=== PATIENT | female | born 1965 | race Hispanic/Latino ===

== ENCOUNTER 2019-01-31 10:13 | Observation (INO) | payer OTHER ==
[~2019-01-31] VITALS: Ht 165.1 cm; Wt 68.0 kg
--- OUTSIDE RECORDS SUMMARY | 2019-01-31 10:16 | XMS REPORT | Continuity of Care Document ---
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 (Same as: Augmentin 875) Inactive 04/01/2014 [facility] atorvastatin 10 MG Oral Tablet [Lipitor] 10 mg=1 tab, PO, Bedtime, # 30 tab, 0 Refill(s) Active 03/31/2014 [facility] Amoxicillin 875 MG / Clavulanate 125 MG Oral Tablet [Augmentin 875-mg] 1 tab, PO, Q12H, # 20 tab, 0 Refill(s) Active 03/31/2014 [facility] Aspirin 325 MG Enteric Coated Tablet 325 mg=1 tab, PO, Daily, # 100 tab, 0 Refill(s) Active 03/31/2014 [facility] Lipitor 10 mg, 1 tab, Route: PO, Drug form: TAB, Bedtime, Dosing Weight 74.176, kg, Start date: 03/30/14 21:00:00, Duration: 30 day, Stop date: 04/28/14 21:00:00Notes: (Same As: Lipitor) No Longer Active 03/31/2014 [facility] pantoprazole 40 mg, 1 tab, Route: PO, Drug form: ECTAB, Before Dinner, Dosing Weight 72.727, kg, Start date: 03/30/14 16:30:00, Duration: 30 day, Stop date: 04/28/14 16:30:00Notes: Tablet should not be chewed or crushed. (Same as: Protonix) No Longer Active 03/30/2014 [facility] Enoxaparin 40 mg, 0.4 mL, Route: SUB-Q, Drug form: INJ, [id number], Dosing Weight 74.176, kg, Start date: 03/30/14 9:00:00, Duration: 30 day, Stop date: 04/28/14 9:00:00Notes: (Same as: Lovenox) No Longer Active 03/30/2014 [facility] Saline Flush 0.9% 5 ml, Route: IVP, Drug Form: INJ, Dosing Weight 74.176, kg, Q12H, Start date: 03/30/14 9:00:00, Duration: 30 day, Stop date: 04/28/14 21:00:00Notes: (Same as: BD Posiflush) No Longer Active 03/30/2014 [facility] Aspirin 325 MG Enteric Coated Tablet 325 mg, 1 tab, Route: PO, Drug form: ECTAB, Daily, Dosing Weight 74.176, kg, Start date: 03/30/14 9:00:00, Duration: 30 day, Stop date: 04/28/14 9:00:00Notes: (Do Not Crush) Do not crush or chew. No Longer Active 03/30/2014 [facility] Claritin 10 mg, 1 tab, Route: PO, Drug form: TAB, Daily, Dosing Weight 74.176, kg, PRN See Nurse's Notes, Start date: 03/30/14 8:43:00, Duration: 30 day, Stop date: 04/29/14 8:42:00, allergyNotes: 1 hr before meals (Same as: Claritin) No Longer Active 03/30/2014 [facility] Saline Flush 0.9% 5 ml, Route: IVP, Drug Form: INJ, Dosing Weight 74.176, kg, PRN, PRN Line Flush, Start date: 03/30/14 6:15:00, Duration: 30 day, Stop date: 04/29/14 6:14:00Notes: (Same as: BD Posiflush) No Longer Active 03/30/2014 [facility] Acetaminophen 650 mg, 2 tab, Route: PO, Drug form: TAB, Q4H, Dosing Weight 74.176, kg, PRN Pain 1-3/Temp > 99.5 F, Start date: 03/30/14 6:15:00, Duration: 30 day, Stop date: 04/29/14 6:14:00Notes: Do not exceed 4 gm/day. (Same as: Tylenol) No Longer Active 03/30/2014 [facility] Claritin 10 mg=1 tab, PO, Daily, Itching / rash / allergy symptoms, # 14 tab, 0 Refill(s) Active 03/30/2014 [facility] Aspirin / Calcium Carbonate 81 mg, 1 tab, Route: PO, Drug form: ECTAB, ONCE, Dosing Weight 72.727, kg, Priority: STAT, Start date: 03/30/14 3:55:00, Stop date: 03/30/14 3:55:00Notes: Do not crush or chew. (Same As: Ecotrin) Inactive 03/30/2014 [facility] Saline Flush 0.9% 5 mL, Route: IVP, Drug Form: INJ, Dosing Weight 72.727, kg, PRN, PRN Line Flush, Start date: 03/30/14 2:39:00, Duration: 30 day, Stop date: 04/29/14 2:38:00Notes: (Same as: BD Posiflush) No Longer Active 03/30/2014 [facility] Allergies, Adverse Reactions, Alerts Substance Category Reaction Severity Reaction type Status Date Reported Comments Source contrast media (iodine-based) Assertion Drug allergy Active [facility] Immunizations Immunization Date Given Site Status Last Updated Comments Source Results Order Name Results Value Reference Range Date Interpretation Comments Source CHEM PANEL Globulin 3.6 g/dL 2.0 - 4.0 03/31/2014 [facility] CHEM PANEL A/G Ratio 0.9 0.7 - 1.6 03/31/2014 [facility] CHEM PANEL AGAP 11.7 meq/L 10.0 - 20.0 03/31/2014 [facility] CHEM PANEL B/C Ratio 16 6 - 25 03/31/2014 [facility] CHEM PANEL eGFR 87 mL/min/1.73m2 03/31/2014 1Result Comment: The eGFR is calculated using the CKD-EPI formula. In most young, healthy individuals the eGFR will be >90 mL/min/1.73m2. The eGFR declines with age. An eGFR of 60-89 may be normal in some populations, particularly the elderly, for whom the CKD-EPI formula has not been extensively validated. Use of the eGFR is not recommended in the following populations: Individuals with unstable creatinine concentrations, including patients and those with serious co-morbid conditions. Patients with extremes in muscle mass or diet. The data above are obtained from the National Kidney Disease Education Program (NKDEP) which additionally recommends that when the eGFR is used in patients with extremes of body mass index for purposes of drug dosing, the eGFR should be multiplied by the estimated BMI. [facility] CHEM PANEL Total Protein 7.0 g/dL 6.4 - 8.4 03/31/2014 [facility] CHEM PANEL Calcium Lvl 8.8 mg/dL 8.5 - 10.5 03/31/2014 [facility] CHEM PANEL ALT 38 unit/L 0 - 65 03/31/2014 [facility] CHEM PANEL Albumin Lvl 3.4 g/dL 3.5 - 5.0 03/31/2014 [facility] CHEM PANEL Glucose Lvl 97 mg/dL 70 - 99 03/31/2014 4Interpretive Data: Adult reference range values reflect the clinical guidelines of the [place] [employer]. [facility] CHEM PANEL BUN 13 mg/dL 7 - 22 03/31/2014 [facility] CHEM PANEL Creatinine Lvl 0.8 mg/dL 0.5 - 1.4 03/31/2014 [facility] CHEM PANEL Sodium Lvl 140 meq/L 135 - 145 03/31/2014 [facility] CHEM PANEL Potassium Lvl 3.7 meq/L 3.5 - 5.1 03/31/2014 [facility] CHEM PANEL Alk Phos 63 unit/L 39 - 136 03/31/2014 [facility] CHEM PANEL AST 20 unit/L 0 - 37 03/31/2014 [facility] CHEM PANEL Bili Total 0.4 mg/dL 0.2 - 1.3 03/31/2014 [facility] CHEM PANEL CO2 26 meq/L 24 - 32 03/31/2014 [facility] CHEM PANEL Chloride Lvl 106 meq/L 95 - 109 03/31/2014 [facility] HEMATOLOGY Basophils 0.3 % 0.0 - 1.0 03/31/2014 [facility] HEMATOLOGY Eosinophils 1.9 % 0.0 - 4.0 03/31/2014 [facility] HEMATOLOGY Monocytes 6.3 % 2.0 - 12.0 03/31/2014 [facility] HEMATOLOGY Lymphocytes 33.1 % 20.0 - 40.0 03/31/2014 [facility] Segs 58.4 % 45.0 - 75.0 03/31/2014 [facility] Eosinophils # 0.1 K/CMM 0.0 - 0.5 03/31/2014 [facility] Monocytes # 0.4 K/CMM 0.0 - 0.8 03/31/2014 [facility] Lymphocytes # 2.0 K/CMM 1.0 - 5.5 03/31/2014 [facility] Segs-Bands # 3.6 K/CMM 1.5 - 8.1 03/31/2014 [facility] Basophils # 0.0 K/CMM 0.0 - 0.2 03/31/2014 [facility] MCHC 34.1 g/dL 32.0 - 36.0 03/31/2014 [facility] MCH 30.5 pg 27.0 - 31.0 03/31/2014 [facility] Hgb 13.1 g/dL 12.0 - 16.0 03/31/2014 [facility] RBC 4.31 M/CMM 4.20 - 5.40 03/31/2014 [facility] WBC 6.2 K/CMM 3.7 - 10.4 03/31/2014 [facility] MCV 89.3 fL 81.0 - 99.0 03/31/2014 [facility] Hct 38.5 % 36.0 - 48.0 03/31/2014 [facility] MPV 7.8 fL 7.4 - 10.4 03/31/2014 [facility] Platelet 332 K/CMM 133 - 450 03/31/2014 [facility] RDW 14.3 % 11.5 - 14.5 03/31/2014 [facility] Carotid artery Doppler bilat US Carotid artery Doppler bilat US PROCEDURE: Carotid artery Doppler US REASON FOR EXAM: r/o cva CLINICAL INFORMATION Transient cerebral ischem COMPARISON: None. TECHNIQUE: Duran-scale, color Doppler and spectral Doppler of the carotid arteries was performed. Any reported ICA stenoses indirectly reference the distal internal carotid diameter as the denominator for the stenosis measurement, utilizing consensus panel criteria. FINDINGS: RIGHT: There is no plaque formation. ICA PSV 112 cm/sec CCA PSV 128 cm/sec ICA/CCA ratio 0.89 Vertebral flow is antegrade. External carotid artery is patent. LEFT: There is no plaque formation. ICA PSV 105 cm/sec CCA PSV 128 cm/sec ICA/CCA ratio 0.82 Vertebral flow is antegrade. External carotid artery is patent. IMPRESSION: 1. RIGHT: ICA stenosis less than 50% by velocity criteria. 1. LEFT: ICA stenosis less than 50% by velocity criteria. Consensus panel Doppler US criteria for diagnosis of ICA stenosis: Stenosis (%) ICA PSV (cm/sec) ICA/CCA ratio <50 <125 <2.0 50-69 125-230 2.0-4.0 >70 but less than >230 >4.0 near occlusion Near occlusion High, low, or Variable undetectable SL: 13 03/30/2014 - - Read by: César Elkins MD Dictated Date/time: 03/30/14 13:57 Electronically Signed by: César Elkins MD 03/30/14 14:01 FINAL REPORT [facility] CHEM PANEL Creatinine Lvl 0.8 mg/dL 0.5 - 1.4 03/30/2014 [facility] CHEM PANEL eGFR 87 mL/min/1.73m2 03/30/2014 2Result Comment: The eGFR is calculated using the CKD-EPI formula. In most young, healthy individuals the eGFR will be >90 mL/min/1.73m2. The eGFR declines with age. An eGFR of 60-89 may be normal in some populations, particularly the elderly, for whom the CKD-EPI formula has not been extensively validated. Use of the eGFR is not recommended in the following populations: Individuals with unstable creatinine concentrations, including patients and those with serious co-morbid conditions. Patients with extremes in muscle mass or diet. The data above are obtained from the National Kidney Disease Education Program (NKDEP) which additionally recommends that when the eGFR is used in patients with extremes of body mass index for purposes of drug dosing, the eGFR should be multiplied by the estimated BMI. [facility] HEMATOLOGY Platelet 322 K/CMM 133 - 450 03/30/2014 [facility] LIPIDS LDL (Calculated) 151 mg/dL <=99 mg/dL 03/30/2014 [facility] LIPIDS VLDL 33 03/30/2014 [facility] LIPIDS CHD Risk 6.94 3.90 - 5.80 03/30/2014 [facility] LIPIDS HDL 31 mg/dL >=61 mg/dL 03/30/2014 [facility] LIPIDS Chol 215 mg/dL <=199 mg/dL 03/30/2014 [facility] LIPIDS Trig 167 mg/dL <=149 mg/dL 03/30/2014 [facility] Brain wo contrast MRI Brain wo contrast MRI PROCEDURE: Brain wo contrast MRI REASON FOR EXAM: r/o cva PT COMPLAINS OF WEAKNESS AND LEFT SIDE NUMBNESS AND TINGLING X 1 DAY CLINICAL INFORMATION Weakness COMPARISON: 03/30/2014 FINDINGS: There is no acute or subacute infarction. There are no focal areas of FLAIR signal abnormality. The temporal lobes are symmetric in size and signal characteristics. The extra-axial space, duran-white differentiation, ventricles and cisterns are normal. There is no hemorrhage, mass or midline shift. The sella and foramen magnum regions are normal. There is mild ethmoid sinus mucosal thickening. IMPRESSION: 1. No evidence for hemorrhage, mass lesion or acute infarct. 2. Mild ethmoid sinus mucosal thickening. SL: 13 03/30/2014 - - Read by: César Elkins MD Dictated Date/time: 03/30/14 11:49 Electronically Signed by: César Elkins MD 03/30/14 11:53 FINAL REPORT [facility] URINE AND STOOL UA Turbidity Clear (03/30/14 3:30 AM) Clear 03/30/2014 [facility] URINE AND STOOL UA Protein Negative mg/dL Negative mg/dL 03/30/2014 [facility] URINE AND STOOL UA Spec Grav 1.006 <=1.030 03/30/2014 [facility] URINE AND STOOL UA pH 6.0 5.0 - 8.0 03/30/2014 [facility] URINE AND STOOL UA Glucose Negative mg/dL Negative mg/dL 03/30/2014 [facility] URINE AND STOOL UA Ketones Negative mg/dL Negative mg/dL 03/30/2014 [facility] URINE AND STOOL UA Bili Negative *NA* (03/30/14 3:30 AM) Negative 03/30/2014 [facility] URINE AND STOOL UA Blood Large *ABN* (03/30/14 3:30 AM) Negative 03/30/2014 [facility] URINE AND STOOL UA Nitrite Negative (03/30/14 3:30 AM) Negative 03/30/2014 [facility] URINE AND STOOL UA Bacteria Moderate /HPF None Seen /HPF 03/30/2014 [facility] URINE AND STOOL UA Sq Epi Occasional /LPF Few /LPF 03/30/2014 [facility] URINE AND STOOL UA WBC 5 /HPF 0 - 5 03/30/2014 [facility] URINE AND STOOL UA RBC 17 /HPF 0 - 2 03/30/2014 [facility] URINE AND STOOL UA Leuk Est Trace *ABN* (03/30/14 3:30 AM) Negative 03/30/2014 [facility] URINE AND STOOL UA Color Ltyellow 03/30/2014 [facility] URINE AND STOOL UA Urobilinogen <=1.0 mg/dL 0.1 - 1.0 03/30/2014 [facility] URINE CHEM U Preg Negative (03/30/14 3:30 AM) Negative 03/30/2014 [facility] CARDIAC ENZYMES CK MB Index 0.9 0.0 - 2.5 03/30/2014 [facility] CARDIAC ENZYMES Troponin-I null 0.00 - 0.40 03/30/2014 [facility] CARDIAC ENZYMES CK MB 1.0 ng/mL 0.5 - 3.6 03/30/2014 [facility] CARDIAC ENZYMES Total CK 108 unit/L 12 - 191 03/30/2014 [facility] CHEM PANEL eGFR 87 mL/min/1.73m2 03/30/2014 3Result Comment: The eGFR is calculated using the CKD-EPI formula. In most young, healthy individuals the eGFR will be >90 mL/min/1.73m2. The eGFR declines with age. An eGFR of 60-89 may be normal in some populations, particularly the elderly, for whom the CKD-EPI formula has not been extensively validated. Use of the eGFR is not recommended in the following populations: Individuals with unstable creatinine concentrations, including patients and those with serious co-morbid conditions. Patients with extremes in muscle mass or diet. The data above are obtained from the National Kidney Disease Education Program (NKDEP) which additionally recommends that when the eGFR is used in patients with extremes of body mass index for purposes of drug dosing, the eGFR should be multiplied by the estimated BMI. [facility] CHEM PANEL AGAP 11.4 meq/L 10.0 - 20.0 03/30/2014 [facility] CHEM PANEL Calcium Lvl 9.2 mg/dL 8.5 - 10.5 03/30/2014 [facility] CHEM PANEL BUN 10 mg/dL 7 - 22 03/30/2014 [facility] CHEM PANEL Glucose Lvl 99 mg/dL 70 - 99 03/30/2014 5Interpretive Data: Adult reference range values reflect the clinical guidelines of the [place] [employer]. [facility] CHEM PANEL Creatinine Lvl 0.8 mg/dL 0.5 - 1.4 03/30/2014 [facility] CHEM PANEL Potassium Lvl 3.4 meq/L 3.5 - 5.1 03/30/2014 [facility] CHEM PANEL Sodium Lvl 139 meq/L 135 - 145 03/30/2014 [facility] CHEM PANEL CO2 25 meq/L 24 - 32 03/30/2014 [facility] CHEM PANEL Chloride Lvl 106 meq/L 95 - 109 03/30/2014 [facility] HEMATOLOGY Eosinophils # 0.2 K/CMM 0.0 - 0.5 03/30/2014 [facility] HEMATOLOGY Basophils 0.6 % 0.0 - 1.0 03/30/2014 [facility] HEMATOLOGY Segs-Bands # 3.7 K/CMM 1.5 - 8.1 03/30/2014 [facility] HEMATOLOGY Lymphocytes # 3.6 K/CMM 1.0 - 5.5 03/30/2014 [facility] HEMATOLOGY Monocytes # 0.5 K/CMM 0.0 - 0.8 03/30/2014 [facility] HEMATOLOGY Monocytes 6.8 % 2.0 - 12.0 03/30/2014 [facility] HEMATOLOGY Eosinophils 2.0 % 0.0 - 4.0 03/30/2014 [facility] Lymphocytes 44.6 % 20.0 - 40.0 03/30/2014 [facility] HEMATOLOGY Segs 46.0 % 45.0 - 75.0 03/30/2014 [facility] HEMATOLOGY Basophils # 0.1 K/CMM 0.0 - 0.2 03/30/2014 [facility] HEMATOLOGY PT 13.1 s 12.0 - 14.7 03/30/2014 [facility] HEMATOLOGY INR 1.00 0.85 - 1.17 03/30/2014 6Interpretive Data: RECOMMENDED RANGES FOR PROTIME INR: 2.0-3.0 for most medical and surgical thromboembolic states. 2.5-3.5 for artificial heart valves and recurrent embolism. INR SHOULD BE USED ONLY FOR PATIENTS ON STABLE ANTICOAGULANT THERAPY. [facility] PTT 33.7 s 22.9 - 35.8 03/30/2014 7Interpretive Data: Heparin Therapeutic Range: 57 - 92 Seconds [facility] HEMATOLOGY MPV 7.8 fL 7.4 - 10.4 03/30/2014 [facility] HEMATOLOGY Platelet 366 K/CMM 133 - 450 03/30/2014 [facility] MCH 30.4 pg 27.0 - 31.0 03/30/2014 [facility] HEMATOLOGY MCHC 34.3 g/dL 32.0 - 36.0 03/30/2014 [facility] HEMATOLOGY RDW 14.3 % 11.5 - 14.5 03/30/2014 [facility] HEMATOLOGY Hct 38.9 % 36.0 - 48.0 03/30/2014 [facility] HEMATOLOGY MCV 88.7 fL 81.0 - 99.0 03/30/2014 [facility] HEMATOLOGY WBC 8.1 K/CMM 3.7 - 10.4 03/30/2014 [facility] HEMATOLOGY RBC 4.39 M/CMM 4.20 - 5.40 03/30/2014 [facility] Hgb 13.3 g/dL 12.0 - 16.0 03/30/2014 [facility] Vital Signs Vital Sign Value Date Comments Source Diastolic (mm Hg) 67 03/31/2014 [facility] Systolic (mm Hg) 103 03/31/2014 [facility] Heart Rate 66 03/31/2014 [facility] Respitory Rate 16 03/31/2014 [facility] Temperature Oral (F) 97.7 F 03/31/2014 [facility] Respitory Rate 16 03/31/2014 [facility] Systolic (mm Hg) 100 03/31/2014 [facility] Diastolic (mm Hg) 65 03/31/2014 [facility] Temperature Oral (F) 98.0 F 03/31/2014 [facility] Heart Rate 68 03/31/2014 [facility] Systolic (mm Hg) 101 03/31/2014 [facility] Diastolic (mm Hg) 62 03/31/2014 [facility] Temperature Oral (F) 97.6 F 03/31/2014 [facility] Respitory Rate 14 03/31/2014 [facility] Heart Rate 62 03/31/2014 [facility] Weight 74.176 03/30/2014 [facility] BMI Calculated 28.07 03/30/2014 [facility] Height 162.56 cm 03/30/2014 [facility] Weight 72.727 03/30/2014 [facility] Encounters Location Location Details Encounter Type Encounter Number Reason For Visit Attending Provider ADM Date DC Date Status Source [facility] Inpatient [id number] Solis Juarez 03/30/2014 03/31/2014 [facility] Procedure Code Date Perfomer Comments Source Kidney operation [id number] [facility]
--- OUTSIDE RECORDS SUMMARY | 2019-01-31 10:16 | XMS REPORT | Summary of Care ---
Author Organization Unknown Address Unknown Phone Unavailable Encounter [facility] Salma(ARELIS) [id number] Date(s): 03/30/14 - 03/31/14 [facility] [id number] Discharge Disposition: Home Physician Attending: Solis Juarez MD Physician Admitting: Solis Juarez MD Reason for Visit CVA Vital Signs 1 2 3 Most recent to oldest [Reference Range]: 162.56 cm (03/30/14 5:50 AM) Height 97.7 DegF (03/31/14 12:00 PM) 98.0 DegF (03/31/14 8:00 AM) 97.6 DegF (03/31/14 4:15 AM) Temperature Oral [96.4-99.1 DegF] 103 mmHg (03/31/14 12:00 PM) 100 mmHg (03/31/14 8:00 AM) 101 mmHg (03/31/14 4:15 AM) Systolic Blood Pressure [90-140 mmHg] 67 mmHg (03/31/14 12:00 PM) 65 mmHg (03/31/14 8:00 AM) 62 mmHg (03/31/14 4:15 AM) Diastolic Blood Pressure [60-90 mmHg] 16 BRMIN (03/31/14 12:00 PM) 16 BRMIN (03/31/14 8:00 AM) 14 BRMIN (03/31/14 4:15 AM) Respiratory Rate [14-20 BRMIN] 66 bpm (03/31/14 12:00 PM) 68 bpm (03/31/14 8:00 AM) 62 bpm (03/31/14 4:15 AM) Peripheral Pulse Rate [60-100 bpm] 74.176 kg (03/30/14 5:50 AM) 72.727 kg (03/30/14 2:24 AM) Weight 28.07 m2 (03/30/14 5:50 AM) Body Mass Index Problem List Condition Effective Dates Status Health Status Informant Kidney Resolved neoplasm(Confirmed) Allergies, Adverse Reactions, Alerts Substance Reaction Severity Status contrast media Active (iodine-based) Medications acetaminophen 650 mg, 2 tab, Route: PO, Drug form: TAB, Q4H, Dosing Weight 74.176, kg, PRN Diane n 1-3/Temp > 99.5 F, Start date: 03/30/14 6:15:00, Duration: 30 day, Stop date: 04/29/14 6:14:00 Notes: Do not exceed 4 gm/day. (Same as: Tylenol) Start Date: 03/30/14 Stop Date: 03/31/14 Status: Discontinued aspirin 81 mg, 1 tab, Route: PO, Drug form: ECTAB, ONCE, Dosing Weight 72.727, kg, Prior ity: STAT, Start date: 03/30/14 3:55:00, Stop date: 03/30/14 3:55:00 Notes: Do not crush or chew.(Same As: Ecotrin) Start Date: 03/30/14 Stop Date: 03/30/14 Status: Completed aspirin 325 mg tablet, enteric coated 325 mg=1 tab, PO, Daily, # 100 tab, 0 Refill(s) Start Date: 03/31/14 Status: Ordered aspirin 325 mg tablet, enteric coated 325 mg, 1 tab, Route: PO, Drug form: ECTAB, Daily, Dosing Weight 74.176, kg, Sta rt date: 03/30/14 9:00:00, Duration: 30 day, Stop date: 04/28/14 9:00:00 Notes: (Do Not Crush) Do not crush or chew. Start Date: 03/30/14 Stop Date: 03/31/14 Status: Discontinued Augmentin 875 mg oral tablet 1 tab, PO, Q12H, # 20 tab, 0 Refill(s) Start Date: 03/31/14 Status: Ordered Augmentin 875 mg oral tablet 1 tab, Route: PO, Drug Form: TAB, Dosing Weight 74.176, kg, Q12H, Start date: 21:00:00, Duration: 30 day, Stop date: 04/30/14 9:00:00 Notes: With food.(Same as: Augmentin 875) Start Date: 03/31/14 Stop Date: 03/31/14 Status: Canceled Claritin 10 mg, 1 tab, Route: PO, Drug form: TAB, Daily, Dosing Weight 74.176, kg, PRN Se e Nurse's Notes, Start date: 03/30/14 8:43:00, Duration: 30 day, Stop date: 04/02 8:42:00, allergy Notes: 1 hr before meals (Same as: Claritin) Start Date: 03/30/14 Stop Date: 03/31/14 Status: Discontinued Claritin 10 mg=1 tab, PO, Daily, Itching / rash / allergy symptoms, # 14 tab, 0 Refill(s) Start Date: 03/30/14 Stop Date: 04/13/14 Status: Ordered enoxaparin 40 mg, 0.4 mL, Route: SUB-Q, Drug form: INJ, [id number], Dosing Weight 74.176, kg, Start date: 03/30/14 9:00:00, Duration: 30 day, Stop date: 04/28/14 9:00:00 Notes: (Same as: Lovenox) Start Date: 03/30/14 Stop Date: 03/31/14 Status: Discontinued Lipitor 10 mg, 1 tab, Route: PO, Drug form: TAB, Bedtime, Dosing Weight 74.176, kg, Star t date: 03/30/14 21:00:00, Duration: 30 day, Stop date: 04/28/14 21:00:00 Notes: (Same As: Lipitor) Start Date: 03/30/14 Stop Date: 03/31/14 Status: Discontinued Lipitor 10 mg oral tablet 10 mg=1 tab, PO, Bedtime, # 30 tab, 0 Refill(s) Start Date: 03/31/14 Status: Ordered pantoprazole 40 mg, 1 tab, Route: PO, Drug form: ECTAB, Before Dinner, Dosing Weight 72.727, kg, Start date: 03/30/14 16:30:00, Duration: 30 day, Stop date: 04/28/14 16:30:0 0 Notes: Tablet should not be chewed or crushed.(Same as: Protonix) Start Date: 03/30/14 Stop Date: 03/31/14 Status: Discontinued Saline Flush 0.9% 5 mL, Route: IVP, Drug Form: INJ, Dosing Weight 72.727, kg, PRN, PRN Line Flush, Start date: 03/30/14 2:39:00, Duration: 30 day, Stop date: 04/29/14 2:38:00 Notes: (Same as: BD Posiflush) Start Date: 03/30/14 Stop Date: 03/31/14 Status: Discontinued Saline Flush 0.9% 5 ml, Route: IVP, Drug Form: INJ, Dosing Weight 74.176, kg, Q12H, Start date: 9:00:00, Duration: 30 day, Stop date: 04/28/14 21:00:00 Notes: (Same as: BD Posiflush) Start Date: 03/30/14 Stop Date: 03/31/14 Status: Discontinued Saline Flush 0.9% 5 ml, Route: IVP, Drug Form: INJ, Dosing Weight 74.176, kg, PRN, PRN Line Flush, Start date: 03/30/14 6:15:00, Duration: 30 day, Stop date: 04/29/14 6:14:00 Notes: (Same as: BD Posiflush) Start Date: 03/30/14 Stop Date: 03/31/14 Status: Discontinued Results ELECTROLYTES 1 2 3 Most recent to oldest [Reference Range]: 140 mEq/L (03/31/14 5:52 AM) 139 mEq/L (03/30/14 2:40 AM) Sodium Lvl [135-145 mEq/L] 3.7 mEq/L (03/31/14 5:52 AM) 3.4 mEq/L *LOW* (03/30/14 2:40 AM) Potassium Lvl [3.5-5.1 mEq/L] 106 mEq/L (03/31/14 5:52 AM) 106 mEq/L (03/30/14 2:40 AM) Chloride Lvl [95-109 mEq/L] 26 mEq/L (03/31/14 5:52 AM) 25 mEq/L (03/30/14 2:40 AM) CO2 [24-32 mEq/L] 11.7 mEq/L (03/31/14 5:52 AM) 11.4 mEq/L (03/30/14 2:40 AM) AGAP [10.0-20.0 mEq/L] CHEM PANEL 1 2 3 Most recent to oldest [Reference Range]: 0.8 mg/dL (03/31/14 5:52 AM) 0.8 mg/dL (03/30/14 6:34 AM) 0.8 mg/dL (03/30/14 2:40 AM) Creatinine Lvl [0.5-1.4 mg/dL] 87 mL/min/1.73m2 1 *NA* (03/31/14 5:52 AM) 87 mL/min/1.73m2 2 *NA* (03/30/14 6:34 AM) 87 mL/min/1.73m2 3 *NA* (03/30/14 2:40 AM) eGFR 13 mg/dL (03/31/14 5:52 AM) 10 mg/dL (03/30/14 2:40 AM) BUN [7-22 mg/dL] 16 (03/31/14 5:52 AM) B/C Ratio [6-25] 97 mg/dL 4 (03/31/14 5:52 AM) 99 mg/dL 5 (03/30/14 2:40 AM) Glucose Lvl [70-99 mg/dL] 7.0 g/dL (03/31/14 5:52 AM) Total Protein [6.4-8.4 g/dL] 3.4 g/dL *LOW* (03/31/14 5:52 AM) Albumin Lvl [3.5-5.0 g/dL] 3.6 g/dL (03/31/14 5:52 AM) Globulin [2.0-4.0 g/dL] 0.9 (03/31/14 5:52 AM) A/G Ratio [0.7-1.6] 8.8 mg/dL (03/31/14 5:52 AM) 9.2 mg/dL (03/30/14 2:40 AM) Calcium Lvl [8.5-10.5 mg/dL] 38 unit/L (03/31/14 5:52 AM) ALT [0-65 unit/L] 20 unit/L (03/31/14 5:52 AM) AST [0-37 unit/L] 63 unit/L (03/31/14 5:52 AM) Alk Phos [39-136 unit/L] 0.4 mg/dL (03/31/14 5:52 AM) Bili Total [0.2-1.3 mg/dL] 1Result Comment: The eGFR is calculated using [...] from the National Kid[employer] Disease Education Program ( NKDEP) which additionally recommends that when the eGFR is used in patients with extremes of body mass index for purposes of drug dosing, the eGFR should be mul tiplied by the estimated BMI. 2Result Comment: The eGFR is calculated using [...] from the National Kidney Disease Education Program ( NKDEP) which additionally recommends that when the eGFR is used in patients with extremes of body mass index for purposes of drug dosing, the eGFR should be mul tiplied by the estimated BMI. 3Result Comment: The eGFR is calculated using [...] from the National Kidney Disease Education Program ( NKDEP) which additionally recommends that when the eGFR is used in patients with extremes of body mass index for purposes of drug dosing, the eGFR should be mul tiplied by the estimated BMI. 4Interpretive Data: Adult reference range values reflect the clinical guidelines of the [place] [employer]. 5Interpretive Data: Adult reference range values reflect the clinical guidelines of the [place] [employer]. CARDIAC ENZYMES 1 2 3 Most recent to oldest [Reference Range]: 108 unit/L (03/30/14 2:40 AM) Total CK [12-191 unit/L] 1.0 ng/mL (03/30/14 2:40 AM) CK MB [0.5-3.6 ng/mL] 0.9 (03/30/14 2:40 AM) CK MB Index [0.0-2.5] <0.02 ng/mL (03/30/14 2:40 AM) Troponin-I [0.00-0.40 ng/mL] LIPIDS 1 2 3 Most recent to oldest [Reference Range]: 6.94 *HI* (03/30/14 6:34 AM) CHD Risk [3.90-5.80] 215 mg/dL *HI* (03/30/14 6:34 AM) Chol [<=199 mg/dL] 167 mg/dL *HI* (03/30/14 6:34 AM) Trig [<=149 mg/dL] 31 mg/dL *LOW* (03/30/14 6:34 AM) HDL [>=61 mg/dL] 151 mg/dL *HI* (03/30/14 6:34 AM) LDL (Calculated) [<=99 mg/dL] 33 *NA* (03/30/14 6:34 AM) VLDL URINE CHEM 1 2 3 Most recent to oldest [Reference Range]: Negative (03/30/14 3:30 AM) U Preg [Negative] URINE AND STOOL 1 2 3 Most recent to oldest [Reference Range]: Clear (03/30/14 3:30 AM) UA Turbidity [Clear] Ltyellow *NA* (03/30/14 3:30 AM) UA Color 6.0 (03/30/14 3:30 AM) UA pH [5.0-8.0] 1.006 (03/30/14 3:30 AM) UA Spec Grav [<=1.030] Negative mg/dL *NA* (03/30/14 3:30 AM) UA Glucose [Negative mg/dL] Large *ABN* (03/30/14 3:30 AM) UA Blood [Negative] Negative mg/dL *NA* (03/30/14 3:30 AM) UA Ketones [Negative mg/dL] Negative mg/dL (03/30/14 3:30 AM) UA Protein [Negative mg/dL] <=1.0 mg/dL *NA* (03/30/14 3:30 AM) UA Urobilinogen [0.1-1.0 mg/dL] Negative *NA* (03/30/14 3:30 AM) UA Bili [Negative] Trace *ABN* (03/30/14 3:30 AM) UA Leuk Est [Negative] Negative (03/30/14 3:30 AM) UA Nitrite [Negative] 5 /HPF (03/30/14 3:30 AM) UA WBC [0-5 /HPF] 17 /HPF *HI* (03/30/14 3:30 AM) UA RBC [0-2 /HPF] Moderate /HPF *ABN* (03/30/14 3:30 AM) UA Bacteria [None Seen /HPF] Occasional /LPF *NA* (03/30/14 3:30 AM) UA Sq Epi [Few /LPF] HEMATOLOGY 1 2 3 Most recent to oldest [Reference Range]: 6.2 K/CMM (03/31/14 5:52 AM) 8.1 K/CMM (03/30/14 2:40 AM) WBC [3.7-10.4 K/CMM] 4.31 M/CMM (03/31/14 5:52 AM) 4.39 M/CMM (03/30/14 2:40 AM) RBC [4.20-5.40 M/CMM] 13.1 g/dL (03/31/14 5:52 AM) 13.3 g/dL (03/30/14 2:40 AM) Hgb [12.0-16.0 g/dL] 38.5 % (03/31/14 5:52 AM) 38.9 % (03/30/14 2:40 AM) Hct [36.0-48.0 %] 89.3 fL (03/31/14 5:52 AM) 88.7 fL (03/30/14 2:40 AM) MCV [81.0-99.0 fL] 30.5 pg (03/31/14 5:52 AM) 30.4 pg (03/30/14 2:40 AM) MCH [27.0-31.0 pg] 34.1 g/dL (03/31/14 5:52 AM) 34.3 g/dL (03/30/14 2:40 AM) MCHC [32.0-36.0 g/dL] 14.3 % (03/31/14 5:52 AM) 14.3 % (03/30/14 2:40 AM) RDW [11.5-14.5 %] 332 K/CMM (03/31/14 5:52 AM) 322 K/CMM (03/30/14 6:34 AM) 366 K/CMM (03/30/14 2:40 AM) Platelet [133-450 K/CMM] 7.8 fL (03/31/14 5:52 AM) 7.8 fL (03/30/14 2:40 AM) MPV [7.4-10.4 fL] 58.4 % (03/31/14 5:52 AM) 46.0 % (03/30/14 2:40 AM) Segs [45.0-75.0 %] 33.1 % (03/31/14 5:52 AM) 44.6 % *HI* (03/30/14 2:40 AM) Lymphocytes [20.0-40.0 %] 6.3 % (03/31/14 5:52 AM) 6.8 % (03/30/14 2:40 AM) Monocytes [2.0-12.0 %] 1.9 % (03/31/14 5:52 AM) 2.0 % (03/30/14 2:40 AM) Eosinophils [0.0-4.0 %] 0.3 % (03/31/14 5:52 AM) 0.6 % (03/30/14 2:40 AM) Basophils [0.0-1.0 %] 3.6 K/CMM (03/31/14 5:52 AM) 3.7 K/CMM (03/30/14 2:40 AM) Segs-Bands # [1.5-8.1 K/CMM] 2.0 K/CMM (03/31/14 5:52 AM) 3.6 K/CMM (03/30/14 2:40 AM) Lymphocytes # [1.0-5.5 K/CMM] 0.4 K/CMM (03/31/14 5:52 AM) 0.5 K/CMM (03/30/14 2:40 AM) Monocytes # [0.0-0.8 K/CMM] 0.1 K/CMM (03/31/14 5:52 AM) 0.2 K/CMM (03/30/14 2:40 AM) Eosinophils # [0.0-0.5 K/CMM] 0.0 K/CMM (03/31/14 5:52 AM) 0.1 K/CMM (03/30/14 2:40 AM) Basophils # [0.0-0.2 K/CMM] 13.1 seconds (03/30/14 2:40 AM) PT [12.0-14.7 seconds] 1.00 6 (03/30/14 2:40 AM) INR [0.85-1.17] 33.7 seconds 7 (03/30/14 2:40 AM) PTT [22.9-35.8 seconds] 6Interpretive Data: RECOMMENDED RANGES FOR PROTIME INR: 2.0-3.0 for most medical and surgical thromboembolic states. 2.5-3.5 for artificial heart valves and recurrent embolism. INR SHOULD BE USED ONLY FOR PATIENTS ON STABLE ANTICOAGULANT THERAPY. 7Interpretive Data: Heparin Therapeutic Range: 57 - 92 Seconds Medications Administered During Your Visit No data available for this section Immunizations No data available for this section Procedures Procedure Type Body Site Date of Procedure Related Diagnosis Kidney operation Social History Social History Type Response Smoking Status Never smoker, Exposure to Tobacco Smoke None, Cigarette Smoking Last 365 Days No, Reg Smoking Cessation Counseling No Assessment and Plan Extracted from: Title: [id number] Author: Solis Juarez MD Date: 03/31/14 Impression and Plan Diagnosis: Brain TIA (ICD9 435.9, Working, Medical), Left-Sided Weakness (ICD9 728.87, Working, Medical), Neck pain (ICD9 723.1, Working, Medical). 1. Left sided Weakness: To R/O TIA: MRI is negative for CVA. Carotid doppler is negative. 2. Likely TIA: PT and OT to see. Doing better 3. Sinus pain: We will start Augmentin and she is going to see ENT as out patient.
[2019-01-31] MEDS ORDERED: ASPIRIN 81 MG CHEW TAB PO ONE (10:30)
[2019-01-31 11:23] LABS: INR 1.06; PROTHROMBIN TIME 14.3 seconds (11.9-14.5)
[2019-01-31 11:24] LABS: PARTIAL THROMBOPLASTIN TIME 34.9 seconds (23.8-35.5)
[2019-01-31 11:32] LABS: BASOPHILS % 0.3 % (0.0-1.0); EOSINOPHILS # (AUTO) 0.1 (0.0-0.4); EOSINOPHILS % 1.5 % (0.0-6.0); HEMATOCRIT 39.3 % (34.2-44.1); HEMOGLOBIN 12.9 g/dL (12.0-16.0); LYMPHOCYTES # (AUTO) 2.2 (1.0-3.2); LYMPHOCYTES % 35.4 % (18.0-39.1); MEAN CORPUSCULAR HEMOGLOBIN 29.2 pg (28-32); MEAN CORPUSCULAR HGB CONC 32.8 g/dL (31-35); MEAN CORPUSCULAR VOLUME 88.9 fL (81-99); MONOCYTES # (AUTO) 0.3 (0.2-0.8); MONOCYTES % 5.1 % (4.4-11.3); NEUTROPHILS # (AUTO) 3.5 (2.1-6.9); NEUTROPHILS % 57.5 % (38.7-80.0); PLATELET COUNT 362 x10e3/uL (140-360); RED BLOOD COUNT 4.42 x10e6/uL (3.6-5.1); RED CELL DISTRIBUTION WIDTH 13.6 % (11.7-14.4)
[2019-01-31 11:33] LABS: ALANINE AMINOTRANSFERASE 23 IU/L (0-55); ALBUMIN 3.8 g/dL (3.5-5.0); ALKALINE PHOSPHATASE 84 IU/L (40-150); ANION GAP 12.6 mmol/L (8-16); BLOOD UREA NITROGEN 11 mg/dL (7-26); BUN/CREATININE RATIO 15 (6-25); CALCIUM 9.8 mg/dL (8.4-10.2); CARBON DIOXIDE 27 mmol/L (22-29); CHLORIDE 103 mmol/L (98-107); CREATINE KINASE 73 IU/L (29-168); CREATININE, SERUM 0.72 mg/dL (0.57-1.11); EST GLOMERULAR FILTRATION RATE > 60 ML/MIN (60-); GLUCOSE 101 mg/dL (74-118); POTASSIUM 3.6 mmol/L (3.5-5.1); SODIUM 139 mmol/L (136-145)
--- NOTE | 2019-01-31 12:09 | Diagnostic Imaging Report ---
Examination: CT BRAIN WITHOUT CONTRAST History:Skull base headache. Left leg and arm lip and nose numbness. Comparison studies:None Technique: Axial images were obtained from the skull base to the vertex. Coronal and sagittal images reconstructed from the axial data. Dose modulation, iterative reconstruction, and/or weight based adjustment of the mA/kV was utilized to reduce the radiation dose to as low as reasonably achievable. Intravenous contrast: None Findings: Scalp: No abnormalities. Bones: No fractures, blastic or lytic lesions. Brain sulci: Appropriate for age. Ventricles: Normal in size and configuration. No hydrocephalus. Extra-axial space: No abnormalities. Parenchyma: No abnormal densities. No masses, hemorrhage, or acute or chronic cortical based vascular insults.. Sellar/suprasellar region: No abnormalities. Craniocervical junction: Patent foramen magnum. No Chiari one malformation. Incidental findings: None. Impression: No intracranial abnormalities. Signed by: Dr. Anna Diaz M.D. on 01/31/2019 12:05 PM
[2019-01-31] MEDS ORDERED: ONDANSETRON HCL INJ 2MG/ML 2ML 2 MG/ML VIAL IV PRN (13:15)
--- OUTSIDE RECORDS SUMMARY | 2019-01-31 13:49 | XMS REPORT ---
Author Author [facility] Address Unknown Phone Unavailable Care Team Providers Care Director Of State Name Role Phone John BARRETO Unavailable Unavailable Problems This patient has no known problems. Allergies, Adverse Reactions, Alerts This patient has no known allergies or adverse reactions. Medications This patient has no known medications. Results Test Description Test Time Test Comments Text Results Atomic Results Result Comments CT BRAIN WO 2019-01-31 12:03:00 [place] [address] Patient Name: REYNA TIMMONS MR #: [id number] : 1965 Age/Sex: 53/F Req #: [id number] Adm Physician: Ordered by: MATILDA BARRETO MD Report #: [id number] Location: ER Room/Bed: Procedure: [id number] CT/CT BRAIN WO Exam Date: 01/31/19 Exam Time: 1100 REPORT STATUS: Signed Examination: CT BRAIN WITHOUT CONTRAST History:Skull base headache. Left leg and arm lip and nose numbness. Comparison studies:None Technique: Axial images were obtained from the skull base to the vertex. Coronal and sagittal images reconstructed from the axial data. Dose modulation, iterative reconstruction, and/or weight based adjustment of the mA/kV was utilized to reduce the radiation dose to as low as reasonably achievable. Intravenous contrast: None Findings: Scalp: No abnormalities. Bones: No fractures, blastic or lytic lesions. Brain sulci: Appropriate for age. Ventricles: Normal in size and configuration. No h ydrocephalus. Extra-axial space: No abnormalities. Parenchyma: No abnormal densities. No masses, hemorrhage, or acute or chronic cortical based vascular insults.. Sellar/suprasellar region: No abnormalities. Craniocervical junction: Patent foramen magnum. No Chiari one malformation. Incidental findings: None. Impression: No intracranial abnormalities. Signed by: Dr. Anna Diaz M.D. on 01/31/2019 12:05 PM Dictated By: ANNA GORDON MD [id number] Transcribed By: AVRIL on 01/31/19 1205 COPY TO: MATILDA BARRETO MD
[2019-01-31 14:27] VITALS: BP 137/73
[2019-01-31 14:28] VITALS: BP 137/73
[2019-01-31 14:29] VITALS: BP 137/73
[2019-01-31 15:10] VITALS: BP_SYST 128; BP_SYST 137; BP_DIAS 73
[2019-01-31 15:46] VITALS: BP 128/73
[2019-01-31] MEDS: SODIUM CHLORIDE 0.9% 1000ML 1,000 ML IV SCH (15:56)
--- NOTE | 2019-01-31 16:32 | Diagnostic Imaging Report ---
MRI BRAIN WO HISTORY: Left arm numbness, left facial numbness COMPARISON: Head CT 01/31/2019 TECHNIQUE: Sagittal T2, axial T2, axial T1, axial T2/FLAIR, axial gradient echo (or susceptibility weighted), coronal T2/FLAIR, and axial diffusion weighted MR images of the brain were obtained without contrast. Motion artifacts obscure some details. DISCUSSION: Scalp/bone marrow: Unremarkable. Brain sulci: Appropriate for patient's age. Ventricles: Normal in size and configuration. No hydrocephalus. Extra-axial spaces: No masses or fluid collections. Parenchyma: Mild T2/FLAIR hyperintense foci throughout the periventricular white matter are likely chronic microvascular ischemic changes. Otherwise, no mass, hemorrhage, or acute vascular insults. Vessels: Normal flow voids in major arteries and veins. Sellar/Suprasellar region: No abnormalities. Craniocervical junction: No abnormalities. Incidental findings: None. IMPRESSION: 1. No acute intracranial abnormalities. 2. Mild supratentorial chronic microvascular ischemic change. Signed by: Dr. Donte Layton M.D. on 01/31/2019 4:29 PM
--- NOTE | 2019-01-31 18:55 | NUR ---
Got report from previous nurse. Family at bedside. call light within reach. patient in bed.
[2019-01-31 19:52] LABS: CREATINE KINASE MB 0.5 ng/mL (0-5.0)
[2019-01-31 20:30] VITALS: BP 116/64
[2019-02-01] VITALS: BP 100/51
[2019-02-01 00:40] VITALS: BP 100/51
--- NOTE | 2019-02-01 02:06 | Consultation ---
DATE OF CONSULTATION: 01/31/2019 Neurology Consult Note. HISTORY OF PRESENT ILLNESS: Ms. Timmons is a 53-year-old right-hand dominant woman with past medical history significant for a questionable prior stroke with unknown residual deficits, admitted to [facility] on January 31, 2019 with symptoms suspicious for stroke. Two days prior to admission, the patient experienced the gradual onset of left hemihypesthesia (face, arm, and leg equally affected). In addition to left hemihypesthesia, Ms. Timmons reports blurred vision on the morning of admission (since resolved), left hemiparesis, and dizziness which is further described as a vertiginous sensation. Ms. Timmons does not report dysarthria, aphasia, poor balance, impairment of gait, or confusion associated with the above symptoms. On the day of admission, the patient presented to her primary care physician's office to discuss the above described symptoms. Her primary care physician recommended the patient proceed to the Emergency Center at [facility] for further evaluation. Upon arrival in the Emergency Center, the patient was afebrile with a blood pressure of 137/80 mmHg and a pulse of 71 beats per minute. Her neurological examination was documented as being nonfocal. A CT of the brain without contrast was performed while the patient was in the Emergency Center. This study did not reveal evidence of recent large territorial ischemia or hemorrhage. Ms. Timmons was admitted to [facility] under observation status for further evaluation and treatment of her left-sided symptoms. Ms. Timmons denies any significant past medical history. However, the patient's reports Ms. Timmons had a "small stroke" approximately 5 years ago. There were no known residual deficits from her prior stroke. Ms. Timmons is not taking anti- platelet or anticoagulant medication on a daily basis at home. REVIEW OF SYSTEMS: Shortness of breath at night (questionable obstructive sleep apnea), blurred vision, left facial weakness and numbness, left arm and leg weakness and numbness, dizziness which is further described as a vertiginous sensation. PAST MEDICAL HISTORY: Prior stroke with unknown residual deficits. 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 PAST HOSPITALIZATIONS: Surgeries/procedures, childbirth x3, prior stroke. FAMILY MEDICAL HISTORY: The patient's maternal and paternal grandparents are . Their medical histories are unknown. The patient's father and mother are alive. Ms. Timmons' father has coronary artery disease and is status post CABG. The patient's mother has diabetes mellitus. Ms. Timmons reports having multiple siblings with diabetes mellitus. The patient has 3 sons, all of whom are alive and healthy. SOCIAL HISTORY: Ms. Timmons is . She works at a daycare. The patient does not report current or prior tobacco, alcohol, or recreational drug use. HOME MEDICATIONS: None. ALLERGIES: NO KNOWN DRUG ALLERGIES. MS. TIMMONS REPORTS ALLERGIES TO NUTS, STRAWBERRIES, BANANAS, GLUTEN, ONIONS, PEPPER, AND LACTOSE. NO KNOWN ALLERGIES TO LATEX. THE PATIENT DOES ENDORSE AN ALLERGY TO IODINE. PHYSICAL EXAMINATION: VITAL SIGNS: Height 65 inches, weight 150 pounds, BMI 25.0 kg/m2, blood pressure 137/73 mmHg, pulse 81 beats per minute, respiratory rate 16 breaths per minute, and oxygen saturation 96% on room air. GENERAL: The patient is awake and alert, does not appear distressed. HEENT: Normocephalic, atraumatic. Pupils are equal, round, and reactive to light. Moist mucous membranes. NECK: Supple. No appreciable thyromegaly. No appreciable carotid bruits. CARDIOVASCULAR: S1, S2, regular rate and rhythm. No murmurs, rubs, or gallops. RESPIRATORY: Clear to auscultation bilaterally. No wheezes, rhonchi, or rales. EXTREMITIES: The skin is warm and dry. No clubbing, cyanosis, or edema. The posterior tibial and dorsalis pedis pulses are 2+ and symmetric. SKIN: No rashes or lesions. NEUROLOGIC: Memory/Attention: The patient is awake and alert, oriented to person, place, time, and situation. Cranial Nerves: Cranial nerve I - not tested. Cranial nerve II, III, IV, and - pupils are equal and round, react briskly to light (from 4 mm to 2 mm). Extraocular movements intact. No nystagmus. Cranial nerve V - sensation to light touch and pinprick is reported to be diminished over the left V1 through V3 distributions. Strength in the temporalis and masseter muscles is within normal limits. Cranial nerve VII - the face is symmetric as are all facial movements. Strength is within normal limits. Cranial nerve VIII - hearing is intact to finger rub bilaterally. Cranial nerve IX, X - the soft palate elevates equally and symmetrically. Cranial nerve XI - normal strength of the bilateral sternocleidomastoid and trapezius muscles. Cranial nerve XII - the tongue protrudes midline and moves symmetrically from [id number]. Strength: Bulk is normal. Strength is 5/5 in the right deltoid, biceps, triceps, wrist flexors and extensors, finger flexors and extensors, intrinsic hand muscles, hip flexors, knee flexors and extensors, ankle dorsiflexion and plantar flexion, and intrinsic foot muscles. There is effort, dependent weakness in multiple muscles examined in the left arm and left leg, which significantly improves with encouragement. Tone is normal in all 4 extremities. DTRs: Deep tendon reflexes are 2+ and symmetric at the triceps, biceps, brachioradialis, patellas and Achilles. Plantar responses are flexor bilaterally. Sensation: Sensation is intact to light touch and pinprick in both arms and both legs. Cerebellar: Aetoai-vqkk-pdnjbz and heel-nguyen movements are intact without dysmetria or other impairment. Gait: Deferred. Speech: Spontaneous speech is normal without appreciable dysarthria or aphasia. Repetition is intact. Involuntary movements: None. Pronator drift: None. LABORATORY DATA: A comprehensive metabolic panel is unremarkable. Cardiac enzymes are negative x1. The CBC with differential and platelets are unremarkable. The coagulation profile is within normal limits. DIAGNOSTIC STUDIES: Electrocardiogram of 01/31/2019: Normal sinus rhythm at [address] of the brain without contrast of 01/31/2019: There is no evidence of recent large territorial ischemia, hemorrhage, mass, or mass effect. Cerebral volumes are appropriate for age. There are no findings suspicious for chronic small-vessel ischemic disease. MRI of the brain without contrast of 01/31/2019: On my review, there is no evidence of recent or remote large territorial ischemia, hemorrhage, mass, or mass effect. Cerebral volumes are appropriate for age. There are few scattered T2/FLAIR hyperintense foci throughout the periventricular deep white matter compatible with mild chronic small vessel ischemic disease. Echocardiogram of 01/31/2019: Ejection fraction 55% to 60%. Trace pericardial and pleural effusion. ASSESSMENT AND PLAN: Ms. Timmons is a 53-year-old right-hand dominant woman with past medical history reportedly significant for a prior stroke with unknown or without residual deficits, who presents to [facility] with gradual worsening of left-sided deficits over a period of two days. The patient has undergone a thorough neurological examination with findings detailed above. Of note, the only objective finding on neurological examination is weakness in multiple muscles of the left arm and left leg, which appears to be effort dependent. The patient's laboratory data and other diagnostic studies have been reviewed and are documented above. There is no evidence of recent or remote ischemia or hemorrhage on the patient's neuro imaging. Nothing in the patient's history, on her neurological examination, or in her diagnostic studies suggest a neurological etiology of the patient's symptoms. Thank you for this consultation. There are no recommendations from the Neurology Service at this time. Please call again with any questions or concerns. Shabana Mobley MD CP/JORGE /[id number] MTDKale
[2019-02-01 03:28] LABS: CREATINE KINASE MB 0.5 ng/mL (0-5.0)
[2019-02-01 04:15] VITALS: BP 108/50
[2019-02-01 05:41] LABS: BASOPHILS % 0.4 % (0.0-1.0); EOSINOPHILS # (AUTO) 0.1 (0.0-0.4); EOSINOPHILS % 2.3 % (0.0-6.0); HEMATOCRIT 35.2 % (34.2-44.1); HEMOGLOBIN 11.5 g/dL (12.0-16.0); LYMPHOCYTES # (AUTO) 2.1 (1.0-3.2); LYMPHOCYTES % 37.5 % (18.0-39.1); MEAN CORPUSCULAR HEMOGLOBIN 29.1 pg (28-32); MEAN CORPUSCULAR HGB CONC 32.7 g/dL (31-35); MEAN CORPUSCULAR VOLUME 89.1 fL (81-99); MONOCYTES # (AUTO) 0.4 (0.2-0.8); MONOCYTES % 7.2 % (4.4-11.3); NEUTROPHILS % 52.4 % (38.7-80.0); PLATELET COUNT 330 x10e3/uL (140-360); RED BLOOD COUNT 3.95 x10e6/uL (3.6-5.1); RED CELL DISTRIBUTION WIDTH 13.6 % (11.7-14.4)
[2019-02-01 06:07] LABS: CREATINE KINASE MB 0.4 ng/mL (0-5.0)
[2019-02-01 06:50] LABS: BLOOD UREA NITROGEN 15 mg/dL (7-26); BUN/CREATININE RATIO 21 (6-25); CALCIUM 9.1 mg/dL (8.4-10.2); CARBON DIOXIDE 24 mmol/L (22-29); CHLORIDE 109 mmol/L (98-107); CREATININE, SERUM 0.73 mg/dL (0.57-1.11); EST GLOMERULAR FILTRATION RATE > 60 ML/MIN (60-); GLUCOSE 106 mg/dL (74-118); SODIUM 141 mmol/L (136-145)
[2019-02-01 07:07] LABS: CHOL/HDL RATIO 3.8 (3.0-3.6); CHOLESTEROL 165 MD/DL (0-199); HDL CHOLESTEROL 44 MG/DL (40-60); LDL CHOLESTEROL 96 MG/DL (60-130); TRIGLYCERIDES 124 MG/DL (0-149)
--- NOTE | 2019-02-01 07:12 | NUR ---
Gave report to oncoming nurse. call covarrubias within reach. patient in bed. at bedside
[2019-02-01] MEDS: SODIUM CHLORIDE 0.9% 1000ML 1,000 ML IV SCH (08:32)
[2019-02-01 08:40] VITALS: BP 112/78
[2019-02-01] MEDS ORDERED: ASPIRIN 81 MG ENTERIC COATED PO SCH (09:00)
--- NOTE | 2019-02-01 12:23 | NUR ---
SOCIAL WORK INITIAL ASSESSMENT Electronic Heat Seal Operator to bedside to discuss plan of care with patient/family. CM/SW role and care transitions discussed. Anticipated discharge plan discussed along with duration of care. CM/SW discussed patients right to make decisions in care. CM/SW work hours given. Patient lives: IN SINGLE STORY HOUSE WITH FAMILY Admit/Transfer: VIA ED POA/Emergency contact: VALERIE [phone] Current/Previous Home Health: NONE PCP/Follow-up Care: TRUE Current/Previous DME: NONE Other Services: NONE Employment Status: DAY [employer] Areas of Concerns: NONE Referral Needs: NONE Education Needs: NONE IMM/LLAMAS given and signed (if applicable): NA Goal for discharge: RETURN HOME NO NEEDS CM/SW left business card at the bedside with contact information. Name and number was also written on the patients whiteboard. Patient verbalized understanding of discussion. CM will follow-up with ongoing discharge and transition of care needs.
[2019-02-01 12:24] VITALS: BP 127/65
[2019-02-01] MEDS ORDERED: ASPIR 8181 MG (12:51)
[2019-02-01] MEDS ORDERED: LIPITOR20 MG (12:51)
--- NOTE | 2019-02-01 13:29 | History and Physical ---
HISTORY OF PRESENT ILLNESS: Betzy Gill is a 53-year-old female, who has past medical history positive for prior CVA, came to the clinic complaining of numbness in the left lower extremity that lasted for two days. Came to the hospital, was admitted to rule out stroke. REVIEW OF SYSTEMS: CARDIOVASCULAR: No chest pain or palpitation. RESPIRATORY: No shortness of breath. No cough. GASTROINTESTINAL: No nausea or vomiting. No diarrhea. GENITOURINARY: No frequency. No dysuria. ALLERGIES: ALLERGIC TO IV CONTRAST. MEAL CONTAINING BANANA, BLACK PEPPER, AND GLUTEN. SOCIAL HISTORY: She does not smoke. She does not drink. PAST MEDICAL HISTORY: Prior stroke. PHYSICAL EXAMINATION: HEART: Regular rhythm. No murmur or added sound. LUNGS: Clear bilaterally. ABDOMEN: Soft, nontender. No distention. No visceromegaly. EXTREMITIES: No evidence of cyanosis or hematoma. DIAGNOSTIC DATA: On the workup; EKG showed normal sinus rhythm, no evidence of any ST-segment depression or elevation. Echocardiogram was done with ejection fraction of 55% to 60%. Trace pleural effusion. No evidence of any severe valvular abnormality. Carotid Doppler studies have been done, the report is pending. MRI of the head was done also, which showed no significant abnormalities except for mild supratentorial chronic microvascular ischemic changes. FINAL IMPRESSION: 1. Left-sided numbness. 2. History of old cerebrovascular accident. PLAN OF TREATMENT: The patient has been seen by Dr. Shabana Mobley, neurologist, who ordered a carotid Doppler and also carotid Doppler is still pending. The patient has been started on a regimen with aspirin 81 mg daily, IV fluids also. We are going to wait for the carotid Doppler to be ready. Once the carotid Doppler is ready and she shows no significant stenosis, then the patient might be able to be discharged home today and follow me in a week. MD BRADEN Ibrahim/JORGE /[id number]
--- NOTE | 2019-02-01 22:16 | Discharge Summary ---
HOSPITAL COURSE: The patient is a 53-year-old female with past medical history positive for old CVA. The patient came to trauma clinic with left-sided weakness. The patient had an MRI of the head, which showed no evidence of any stroke. She had some ischemic changes. EKG normal. Echocardiogram showed ejection fraction 55% to 60%, no evidence of any significant valvular abnormalities. Carotid Doppler is done, report is pending. The patient on physical exam had no significant neurologic deficit. discharged home today. Carotid Doppler is negative for any significant carotid stenosis, which is more than 75%. Dr. Shabana Mobley has been consulted from Neurology point of view. PHYSICAL EXAMINATION: VITAL SIGNS: Blood pressure 108/50, temperature 97.2, heart rate 77 per minute, respiratory rate 18 per minute, and oxygen saturation 96%. LABORATORY DATA: BMP; sodium 141, potassium 4.0, chloride 109, CO2 24, BUN 15, creatinine 0.73, glucose 106. CBC; white blood count 5.68, hemoglobin 11.5, hematocrit 35.2, platelet count 330,000. PT 14.3, PTT 34.9, INR 1.06. AST 22, ALT 23, total bilirubin 0.5, alkaline phosphatase 84. FINAL IMPRESSION: 1. Episode of numbness in the left upper and lower extremity, which is resolved. 2. History of old cerebrovascular accident. PLAN OF TREATMENT: The patient is going to be discharged home on baby aspirin 81 mg daily. Pending report on the Carotid Doppler Dr. Mobley. MD BRADEN Ibrahim/OLIVAL /[id number]
== END 2019-02-01 14:12 | disposition home or self-care (01) ==
LOC: ER 10:13 → ERHOLD 13:03 → IMCU 14:02
PROVIDERS: ADMIT Internal Medicine; ATTEND Internal Medicine
DX: I69.354 Hemiplegia and hemiparesis following cerebral infarction affecting left non-dominant side (principal); Z91.041 Radiographic dye allergy status; Z91.018 Allergy to other foods
CPT/HCPCS: 36415; 70450; 70551; 80048; 80053; 80061; 82550 ×2; 82553 ×2; 84484 ×2; 85025 ×2; 85610; 85730; 93005; 93306; 93880; 99284; G0378 ×2; J7030 ×2